=== PATIENT | female | born 1955 | race Two or more races ===

== ENCOUNTER 2021-11-29 07:18 | Outpatient (CLI) | payer OTHER | END 2021-11-29 07:29 | disposition home or self-care (01) | LOC: SONOGRAMA 07:18 | PROVIDERS: ATTEND Family Medicine | DX: R10.2 Pelvic and perineal pain (principal); N20.0 Calculus of kidney; M19.90 Unspecified osteoarthritis, unspecified site; M17.0 Bilateral primary osteoarthritis of knee ==

== ENCOUNTER → 2022-08-08 | Outpatient (CLI) | payer OTHER | END | disposition home or self-care (01) | LOC: NUCLEAR 13:52 | PROVIDERS: ATTEND Family Medicine | DX: M81.0 Age-related osteoporosis without current pathological fracture (principal) ==

== ENCOUNTER 2022-10-20 11:44 | Outpatient (CLI) | payer OTHER | END 2022-10-20 11:55 | disposition home or self-care (01) | LOC: RAD 11:44 | PROVIDERS: ATTEND Physical Medicine & Rehabilitation | DX: M54.50 Low back pain, unspecified (principal); M18.9 Osteoarthritis of first carpometacarpal joint, unspecified; M19.041 Primary osteoarthritis, right hand; M25.511 Pain in right shoulder ==

== ENCOUNTER 2024-11-18 10:44 | Outpatient (CLI) | payer OTHER | END 2024-11-18 10:52 | disposition home or self-care (01) | LOC: RAD 10:44 | PROVIDERS: ATTEND Physical Medicine & Rehabilitation | DX: M17.11 Unilateral primary osteoarthritis, right knee (principal); M17.12 Unilateral primary osteoarthritis, left knee ==